=== PATIENT | female | born 1940 | race Caucasian/White ===

== ENCOUNTER 2021-06-25 11:52 | Inpatient (IN) | payer OTHER, BC ==
[~2021-06-25] VITALS: Ht 167.6 cm; Wt 59.0 kg
--- NOTE | 2021-06-25 11:58 | NUR ---
PACIENTE REFIERE NO COME HACE 3 MUKHERJEE, DIAREAS, HERIDA ABIERTA EN MANO DERECHA POR CAIDA.
--- NOTE | 2021-06-25 13:38 | NUR ---
PT EVALUADO POR MD [facility]IMIEN [place] [facility]. SE EDUCA A PT SOBRE EL MISMO Y REFIERE ENTENDER. VALDEMAR MILDRED EJECUTA ORNENES Y MANTIENE MEDIDAS ACEPTICAS. SE MONITOREA PT POR CAMBIO EN TRAVIS CONDICION.
--- NOTE | 2021-06-25 15:26 | NUR ---
PTE ALERTA Y ORIENTADA X3 EN ADAM CON BARANDAS ELEVADAS. PTE CANALIZADA AREA VIOLETTE DE EDEMA Y DE ENROJECIMIENTO MEDICO. PTE EN ESPERA DE JESSICA DE FECAL,SE EDUCA DE LA JESSICA DEL MISMO PARA RE EVALUACION MEDICA.
--- NOTE | 2021-06-25 23:04 | NUR ---
SE RECIBE PTE ALERTA Y ORIENTADA X2 EN ADAM, PTE LUIS DE [place]A [place] REHUSA LA MISMA. PTE CON H/L COLOCADO.
--- NOTE | 2021-06-26 06:07 | NUR ---
SE REPTEN MUESTRAS DE LABORATORIO UTILIZANDO MEDIDAS ASEPTICAS. SE COLOCA H/L NUEVO A PTE. SE COLOCA IV FLUIDS Y SE BRINDAN MEDICAMENTOS.
--- NOTE | 2021-06-26 07:12 | NUR ---
SE RECIBE PTE FEMENINA DE 81 YRS ALERTA ,CONCIETE Y TRANQUILA EN COMPANIA DE FMAILIAR.PTE SE OBSERVA CON IVF'S PATENTE Y VIOLETTE DE EDEMA. SE MANTIENE CONSULTADO CON EL MARQUISE MOSCOSO. SE MANTIENE BAJO OBSERVACION POR CAMBIOS.
[2021-06-30] MEDS ORDERED: OPTIMAL D31250 MCG (08:51)
[2021-06-30] MEDS ORDERED: INTESTINEX680 M1 (08:51)
[2021-06-30] MEDS ORDERED: LEVOTHYROXINE25 MC1 (08:51)
[2021-06-30] MEDS ORDERED: CANDESARTAN CILE8 M1 (08:51)
[2021-06-30] MEDS ORDERED: FERROUS SULFAT325 MG (08:51)
[2021-06-30] MEDS ORDERED: IBANDRONATE SO150 MG (08:51)
[2021-06-30] MEDS ORDERED: ROSUVASTATIN CA20 MG (08:51)
[2021-06-30] MEDS ORDERED: PANTOPRAZOLE SO40 MG (08:51)
== END 2021-07-04 12:35 | disposition home or self-care (01) | DRG 392 ==
LOC: ER 11:52 → SURH 06-26 13:12 → SEC-K 06-26 13:12 → SURH 06-26 17:58
PROVIDERS: ADMIT Internal Medicine; ATTEND Internal Medicine
DX: K52.89 Other specified noninfective gastroenteritis and colitis (principal); E87.1 Hypo-osmolality and hyponatremia; E87.6 Hypokalemia; K31.819 Angiodysplasia of stomach and duodenum without bleeding; K21.9 Gastro-esophageal reflux disease without esophagitis; E86.0 Dehydration; I10 Essential (primary) hypertension; E03.8 Other specified hypothyroidism; E78.5 Hyperlipidemia, unspecified; S61.412A Laceration without foreign body of left hand, initial encounter; Z88.0 Allergy status to penicillin